=== PATIENT | female | born 1995 | race Caucasian/White ===

== ENCOUNTER → 2018-05-31 | Outpatient (CLI) | payer OTHER ==
[2018-05-31 15:09] LABS: URINE APPEARANCE CLEAR; URINE COLOR ORANGE
[2018-05-31 15:10] LABS: URINE GLUCOSE NEGATIVE (NEGATIVE); URINE KETONE NEGATIVE (NEGATIVE); URINE WBC 0-1 /hpf (0-3)
== END ==
LOC: LAB 13:27
PROVIDERS: Physician Assistant
DX: R30.0 Dysuria (principal)

== ENCOUNTER → 2019-02-02 | Outpatient (CLI) | payer OTHER ==
[2019-02-02 17:29] LABS: EOS % 0.4 % (1.0-5.0); HEMOGLOBIN 12.2 g/dL (12.5-16.0); LYMPH# 3.2 (1.50-4.00); MEAN CELL VOLUME 88 fl (78-100); MEAN CORPUSCULAR HEMOGLOBIN 29 pg (27-31); MEAN CORPUSCULAR HGB CONC 33 g/dL (33-37); MEAN PLATELET VOLUME 9.2 fl (7.4-10.4); MONO # 0.6 (0.20-0.80); NEU # 3.7 (1.40-6.50); PLATELET COUNT 356 K/mm3 (130-400); RED BLOOD COUNT 4.21 M/mm3 (4.10-5.30); RED CELL DISTRIBUTION WIDTH 12.2 % (11.5-14.5); WHITE BLOOD COUNT 7.6 K/mm3 (4.8-10.8)
[2019-02-02 17:36] LABS: ALBUMIN 4.2 g/dL (3.5-5.0); POTASSIUM 4.1 mmol/L (3.5-5.1)
[2019-02-02 17:37] LABS: CALCIUM 9.7 mg/dL (8.3-10.5)
[2019-02-02 17:39] LABS: TOTAL PROTEIN 8.3 g/dL (6.4-8.3)
[2019-02-02 17:40] LABS: TOTAL BILIRUBIN 0.3 mg/dL (0.2-1.2)
== END ==
LOC: LAB 17:11
PROVIDERS: Family Medicine
DX: Z00.00 Encounter for general adult medical examination without abnormal findings (principal); Z13.820 Encounter for screening for osteoporosis

== ENCOUNTER → 2024-04-03 | Outpatient (CLI) | payer OTHER | LOC: LAB 09:42 | DX: E66.9 Obesity, unspecified (principal) ==